=== PATIENT | male | born 1975 | race Caucasian/White ===

== ENCOUNTER 2023-11-15 15:42 | Observation (INO) | payer BC, SELFPAY ==
[2023-11-15] VITALS (9 sets, daily range): BP systolic 122–162; BP diastolic 81–110; BMI 25.7
--- NOTE | 2023-11-15 11:31 | ED.CVA ---
History of Present Illness
<Nubia Mccabe PA-C - Last Filed: 11/15/23 16:26>
General
Chief Complaint: CVA/TIA Symptoms
Source: patient
Time Seen by Provider: 11/15/23 11:07
Onset of Stroke Symptoms
Onset of symptoms known: Yes
Date of onset of symptoms: 11/13/23
History of Present Illness
History of Present Illness:
48yoM with a history of tobacco use (2 ppd) and gout presenting with his for evaluation of possible stroke-like symptoms. Symptoms initially began 2 nights ago. He reports dizziness which he describes as 'wooziness' and feeling off balance. He
states it feels like he is buzzed. These symptoms come and go. He also reports intermittent 'flashes' in his right eye since Monday as well as gait imbalance. He was trying to open the car door this morning but was unable to grab on to the handle.
He states it felt like he forgot how to open the door. This lasted about 1 minute. He had two similar episodes of this yesterday. He was seen by his PCP this morning and was sent to the ED for evaluation. He denies any headache, double vision,
vertigo, weakness, paresthesias. No head trauma.
Phy Exam
<Nubia Mccabe PA-C - Last Filed: 11/15/23 16:26>
General Physical Exam
General Presentation: well appearing and no apparent distress
General age: appears stated age
General Skin: warm and dry
General Habitus: normal
General Mental: alert
Cardiovascular Exam
Cardiovascular Exam: regular rate/rhythm, no edema and no murmur
Pulmonary Exam
Pulmonary Exam: lungs clear, no respiratory distress, no crackles and no wheezing
Neurological Exam
Neurological Exam: alert, CN II-XII intact, no motor deficits, no sensory deficits and other (CN 2-12 intact. PERRL. EOMs intact. Visual basilio normal. 5/5 strength and sensation intact in all extremities. Negative drift x4. Normal finger to nose
and heel to syed bilaterally. +Ataxia with tandem gait. )
NIH Stroke Score
Level of Consciousness: 0 - Alert
LOC questions: 0-Answers both correctly
LOC Commands: 0-Performs both correctly
Best Gaze: 0-Normal
Visual Basilio: 0=Normal, no visual loss
Facial palsy: 0=Normal, symmetrical
Motor - Right Arm: 0=No drift 10 seconds
Motor - Left Arm: 0=No drift 10 seconds
Motor - Right Le-No drift 5 seconds
Motor - Left Le-No drift 5 seconds
Limb Ataxia: 0-Absent
Sensation: 0-Normal
Best Language: 0-No aphasia
Dysarthria: 0-Normal
Extinction and Inattention: 0-No abnormality
Total Score:: 0
[place] Coma Scale
Eye Opening: Spontaneous
Verbal Response: Oriented
Motor Response: Obeys Commands
GCS Total Score: 15
Course
<Nubia Mccabe PA-C - Last Filed: 11/15/23 16:26>
Orders/Labs/Results
Orders:
Orders
11/15/23 10:52
CT Head W/o Iv Contrast Urgent
Comment:
Reason For Exam: lightheaded/unsteady gait for two days
11/15/23 11:31
Electrocardiogram (*1) Urgent
Reason for Study: Vertigo / Dizzy
EKG- Treatment ONCE
11/15/23 11:41
Complete Blood Count/With Diff Urgent
Comprehensive Metabolic Panel Urgent
Troponin I Urgent
11/15/23 12:29
CT Head & Neck Angio W/wo IV Urgent
Comment:
Reason For Exam: Dizziness, CVA symptoms
11/15/23 14:53
Admit/Transfer Patient As Directed
Co-Sign Provider:
Level of Care: Observation services
Assign to:: Telemetry
Physician / Group: josiane
Diagnosis: CVA
Reason for Telemetry: CVA/TIA
Date to Stop Telemetry: 11/18/23
Time to Stop Telemetry: 11:00
PRN Pain Medication Management As Directed
May give lesser potent ordered pain med per pt: Yes
preference::
Protocol:: Medication orders for pain may be administered in a
manner that supports deferring to patient preference
when the pt is:
- Requesting an ordered lesser potent pain medication.
Least to most potent pain medications are defined
as: acetaminophen < NSAID < tramadol < opioids
(morphine, oxycodone, hydromorphone).
- Requesting a lesser dose of the same medication IF
ORDERED.
- Requesting a less intrusive route of administration
if both routes are prescribed by the provider (PO <
IV).
11/15/23 14:54
Code Status As Directed
Resuscitation Status: Full Code
11/15/23 16:11
0.9% Sodium Chloride [Nss (Preservative Free)] See Protocol IV PRN PRN
Acetaminophen [Tylenol/Feverall] 650 mg RECTAL Q4HPRN PRN
Acetaminophen [Tylenol] 650 mg PO Q4HPRN PRN
FOLic ACID [Folvite] 1 mg 0.9% Sodium Chloride 50 ml [Nss] 50 ml IV DAILYPRN
Lorazepam [Ativan] 1 mg IV Q1HPRN PRN
Lorazepam [Ativan] 1 mg PO Q2HPRN PRN
Lorazepam [Ativan] 2 mg IV Q1HPRN PRN
11/15/23 16:11
Case Management Consult ONCE
Case Management Consult: Discharge Planning
Comment: stroke/tia
Case Management Consult Once
Case Management Consult: Other
Comment: Substance abuse counseling
DIETARY CONSULT Routine
Reason for Consult: Nutrition support, possible refeeding guidelines
DIETARY CONSULT Routine
Reason for Consult: stroke/TIA
NEUROLOGY CONSULT Urgent
Consulting Provider: Abdoul Green
Was physician already notified: Yes
Sign Writer Hand Urgent
Alcohol Urgent
B-Hydroxybutyrate Urgent
Comprehensive Metabolic Panel Routine
GGTP Urgent
Glycohemoglobin (HgbA1c) Routine
Magnesium Urgent
Phosphorus Urgent
Urinalysis Routine
Urine Drug Abuse Screen Routine
MR Brain Without Contrast Routine
Comment:
Reason For Exam: stroke/TIA
Recent pill cam endoscopy?: No
Activity As Directed
Activity Level: As Tolerated
MSAS SCORE As Directed
MSAS Score 0-4: Repeat MSAS every 2 hours until 0-4 for three consecutive assessments, then every 4 hours x 48
hours.
MSAS Score 5-7: For MILD withdrawl symptoms. Repeat MSAS and RASS every 2 hours
MSAS Score 8-11: For MODERATE withdrawal symptoms. Repeat MSAS and RASS every 1 hour. Consider ICU or IMU
level of care.
MSAS Score > 11: For SEVERE withdrawal symptoms. Repeat MSAS and RASS every 1 hour. Notify provider, consider
ICU level of care.
MSAS Additional Instructions: If no improvement or no decrease in score from severe to moderate within 12
hours, consult psychiatry
MSAS Notify Provider: Notify provider if patient requires more than 10 mg of Lorazepam in eight hour period.
NIH Stroke Scale As Directed
Directions: Per protocol
Comment: every shift and with any change in condition or mental status
Neurological Checks As Directed
Frequency: q4h
Additional Instructions:: q4h x 24h upon admission to the floor, then qshift & with any change in condition
and mental status
Patient Education As Directed
Type: Stroke education packet
Comment: provide to patient and family
Pneumatic Compression Sleeves As Directed
Type: Thigh high
Swallow Screening CVA/TIA ONLY As Directed
Comment: NPO until swallowing screening completed
If patient FAILS swallow screening:: NPO, Speech Therapy consult, Aspiration Precautions
If patient PASSES swallow screening, diet:: Cholesterol Lowering
Vital Signs As Directed
Frequency: Per unit guidelines
Ot Eval And Treat Routine
Pt Eval And Treat Routine
Activity Level: As Tolerated
Speech Therapy Eval & Treat Routine
DX Deep Vein Thrombosis Video Routine
11/15/23 18:00
Atorvastatin [Lipitor] 40 mg PO QPM
11/15/23 20:00
Thiamine Injection 200 mg IV Q12
11/16/23 06:00
Cardiovascular Evaluation IN AM
Complete Blood Count/No Diff IN AM
11/16/23 08:00
Allopurinol [Zyloprim] 100 mg PO DAILY
Aspirin Chewable [Low Strength Aspirin] 81 mg PO DAILY
FOLic ACID [Folvite] 1 mg PO DAILY
11/18/23 11:00
DC Protocol for Telemetry ONCE
11/18/23 20:00
Thiamine HCl [Vitamin B1] 100 mg PO BID
Abnormal Lab Results
11/15/23
11:41
WBC 13.8 H 10^3/uL
(4.8-10.8)
RBC 3.30 L 10^6/uL
(4.70-6.10)
Hct 37.9 L %
(39.0-52.0)
MCV 114.8 H fL
(80.0-94.0)
MCH 43.0 H pg
(27.0-31.0)
MCHC 37.5 H g/dL
(33.0-37.0)
Plt Count 458 H 10^3/uL
(130-400)
Abs Immat Gran (auto) 0.2 H 10^3/uL
(0-0.05)
Absolute Neuts (auto) 10.4 H 10^3/uL
(1.4-6.5)
Immature Gran % 1.4 H %
(0-0.5)
Lymphocytes % 16.4 L %
(20.5-51.1)
Chloride 93 L mmol/L
(98-107)
Carbon Dioxide 36 H mmol/L
(22-30)
BUN 8 L mg/dl
(9-20)
Creatinine 0.6 L mg/dL
(0.7-1.3)
Glucose 122 H mg/dl
(70-99)
AST 99 H U/L
(17-59)
ALT 51 H U/L
(0-50)
Alkaline Phosphatase 181 H U/L
(38-126)
11/15/23 11:41
11/15/23 11:41
Vital Signs
Initial and Last Documented VS:
Initial Vital Signs
Temp Pulse Resp Pulse Ox
98.2 F 97 16 98
11/15/23 10:49 11/15/23 10:49 11/15/23 10:49 11/15/23 10:49
Last Documented Vital Signs
Temp Pulse Resp BP Pulse Ox
98.2 F 76 23 132/94 99
11/15/23 10:49 11/15/23 15:45 11/15/23 15:45 11/15/23 15:00 11/15/23 12:42
<Gianni Eason, DO - Last Filed: 11/15/23 12:04>
Orders/Labs/Results
Orders:
Orders
11/15/23 10:52
CT Head W/o Iv Contrast Urgent
Comment:
Reason For Exam: lightheaded/unsteady gait for two days
11/15/23 11:31
Electrocardiogram (*1) Urgent
Reason for Study: Vertigo / Dizzy
EKG- Treatment ONCE
11/15/23 11:41
Complete Blood Count/With Diff Urgent
Comprehensive Metabolic Panel Urgent
Troponin I Urgent
11/15/23 12:29
CT Head & Neck Angio W/wo IV Urgent
Comment:
Reason For Exam: Dizziness, CVA symptoms
11/15/23 14:53
Admit/Transfer Patient As Directed
Co-Sign Provider:
Level of Care: Observation services
Assign to:: Telemetry
Physician / Group: josiane
Diagnosis: CVA
Reason for Telemetry: CVA/TIA
Date to Stop Telemetry: 11/18/23
Time to Stop Telemetry: 11:00
PRN Pain Medication Management As Directed
May give lesser potent ordered pain med per pt: Yes
preference::
Protocol:: Medication orders for pain may be administered in a
manner that supports deferring to patient preference
when the pt is:
- Requesting an ordered lesser potent pain medication.
Least to most potent pain medications are defined
as: acetaminophen < NSAID < tramadol < opioids
(morphine, oxycodone, hydromorphone).
- Requesting a lesser dose of the same medication IF
ORDERED.
- Requesting a less intrusive route of administration
if both routes are prescribed by the provider (PO <
IV).
11/15/23 14:54
Code Status As Directed
Resuscitation Status: Full Code
11/15/23 16:11
0.9% Sodium Chloride [Nss (Preservative Free)] See Protocol IV PRN PRN
Acetaminophen [Tylenol/Feverall] 650 mg RECTAL Q4HPRN PRN
Acetaminophen [Tylenol] 650 mg PO Q4HPRN PRN
FOLic ACID [Folvite] 1 mg 0.9% Sodium Chloride 50 ml [Nss] 50 ml IV DAILYPRN
Lorazepam [Ativan] 1 mg IV Q1HPRN PRN
Lorazepam [Ativan] 1 mg PO Q2HPRN PRN
Lorazepam [Ativan] 2 mg IV Q1HPRN PRN
11/15/23 16:11
Case Management Consult ONCE
Case Management Consult: Discharge Planning
Comment: stroke/tia
Case Management Consult Once
Case Management Consult: Other
Comment: Substance abuse counseling
DIETARY CONSULT Routine
Reason for Consult: Nutrition support, possible refeeding guidelines
DIETARY CONSULT Routine
Reason for Consult: stroke/TIA
NEUROLOGY CONSULT Urgent
Consulting Provider: Abdoul Green
Was physician already notified: Yes
Sign Writer Hand Urgent
Alcohol Urgent
B-Hydroxybutyrate Urgent
Comprehensive Metabolic Panel Routine
GGTP Urgent
Glycohemoglobin (HgbA1c) Routine
Magnesium Urgent
Phosphorus Urgent
Urinalysis Routine
Urine Drug Abuse Screen Routine
MR Brain Without Contrast Routine
Comment:
Reason For Exam: stroke/TIA
Recent pill cam endoscopy?: No
Activity As Directed
Activity Level: As Tolerated
MSAS SCORE As Directed
MSAS Score 0-4: Repeat MSAS every 2 hours until 0-4 for three consecutive assessments, then every 4 hours x 48
hours.
MSAS Score 5-7: For MILD withdrawl symptoms. Repeat MSAS and RASS every 2 hours
MSAS Score 8-11: For MODERATE withdrawal symptoms. Repeat MSAS and RASS every 1 hour. Consider ICU or IMU
level of care.
MSAS Score > 11: For SEVERE withdrawal symptoms. Repeat MSAS and RASS every 1 hour. Notify provider, consider
ICU level of care.
MSAS Additional Instructions: If no improvement or no decrease in score from severe to moderate within 12
hours, consult psychiatry
MSAS Notify Provider: Notify provider if patient requires more than 10 mg of Lorazepam in eight hour period.
NIH Stroke Scale As Directed
Directions: Per protocol
Comment: every shift and with any change in condition or mental status
Neurological Checks As Directed
Frequency: q4h
Additional Instructions:: q4h x 24h upon admission to the floor, then qshift & with any change in condition
and mental status
Patient Education As Directed
Type: Stroke education packet
Comment: provide to patient and family
Pneumatic Compression Sleeves As Directed
Type: Thigh high
Swallow Screening CVA/TIA ONLY As Directed
Comment: NPO until swallowing screening completed
If patient FAILS swallow screening:: NPO, Speech Therapy consult, Aspiration Precautions
If patient PASSES swallow screening, diet:: Cholesterol Lowering
Vital Signs As Directed
Frequency: Per unit guidelines
Ot Eval And Treat Routine
Pt Eval And Treat Routine
Activity Level: As Tolerated
Speech Therapy Eval & Treat Routine
DX Deep Vein Thrombosis Video Routine
11/15/23 18:00
Atorvastatin [Lipitor] 40 mg PO QPM
11/15/23 20:00
Thiamine Injection 200 mg IV Q12
11/16/23 06:00
Cardiovascular Evaluation IN AM
Complete Blood Count/No Diff IN AM
11/16/23 08:00
Allopurinol [Zyloprim] 100 mg PO DAILY
Aspirin Chewable [Low Strength Aspirin] 81 mg PO DAILY
FOLic ACID [Folvite] 1 mg PO DAILY
11/18/23 11:00
DC Protocol for Telemetry ONCE
11/18/23 20:00
Thiamine HCl [Vitamin B1] 100 mg PO BID
Abnormal Lab Results
11/15/23
11:41
WBC 13.8 H 10^3/uL
(4.8-10.8)
RBC 3.30 L 10^6/uL
(4.70-6.10)
Hct 37.9 L %
(39.0-52.0)
MCV 114.8 H fL
(80.0-94.0)
MCH 43.0 H pg
(27.0-31.0)
MCHC 37.5 H g/dL
(33.0-37.0)
Plt Count 458 H 10^3/uL
(130-400)
Abs Immat Gran (auto) 0.2 H 10^3/uL
(0-0.05)
Absolute Neuts (auto) 10.4 H 10^3/uL
(1.4-6.5)
Immature Gran % 1.4 H %
(0-0.5)
Lymphocytes % 16.4 L %
(20.5-51.1)
Chloride 93 L mmol/L
(98-107)
Carbon Dioxide 36 H mmol/L
(22-30)
BUN 8 L mg/dl
(9-20)
Creatinine 0.6 L mg/dL
(0.7-1.3)
Glucose 122 H mg/dl
(70-99)
AST 99 H U/L
(17-59)
ALT 51 H U/L
(0-50)
Alkaline Phosphatase 181 H U/L
(38-126)
11/15/23 11:41
11/15/23 11:41
Vital Signs
Initial and Last Documented VS:
Initial Vital Signs
Temp Pulse Resp Pulse Ox
98.2 F 97 16 98
11/15/23 10:49 11/15/23 10:49 11/15/23 10:49 11/15/23 10:49
Last Documented Vital Signs
Temp Pulse Resp BP Pulse Ox
98.2 F 76 23 132/94 99
11/15/23 10:49 11/15/23 15:45 11/15/23 15:45 11/15/23 15:00 11/15/23 12:42
ivette;Nubia Mccabe PA-C - Last Filed: 11/15/23 16:26>
MDM/Problems Addressed
Differential Diagnosis Includes:
48yoM here with stroke-like symptoms that began about 36 hours ago. C/o dizziness and intermittent R visual changes. He had an episode this morning in which he did not remember how to open the car door. Sent here by PCP. He is hypertensive with
otherwise normal vital signs. No focal deficits on exam other than ataxia with tandem gait. NIHSS 0. Differential diagnosis includes but is not limited to: CVA, TIA, arrhythmia, vertigo
Initial ED plan: Check cardiac labs, EKG, and CT head. No indication for stroke alert as symptoms started >24 hours ago.
<Nubia Mccabe PA-C - Last Filed: 11/15/23 16:26>
*EKG
Interpreted by ED Provider?: Yes
EKG Intrepretation Date: 11/15/23
EKG Intrepretation Time: 11:55
Heart Rate: 80
Rate: normal
Rhythm: sinus
[place]: normal axis
Interval: normal interval
QRS Pattern: normal QRS
Ischemia: no ischemia
*Critical Care Note
Total Time (30-74mins, 75-104mins- exclusive of procedures): Not Applicable
<Nubia Mccabe PA-C - Last Filed: 11/15/23 16:26>
Update Note
Update Note:
CT head is negative for acute findings. I discussed case with neurology, Dr. Green. Neurology recommending admission and CTA head/neck. CTA is negative for large vessel occlusion. He was admitted for further evaluation and management.
ED Attending Note
<Nubia Mccabe PA-C - Last Filed: 11/15/23 16:26>
-
Portions of this chart may have been created with voice recognition software.� Occasional wrong word or��sound alike� substitutions may have occurred due to the inherent limitations of voice recognition software.
<Gianni Eason DO - Last Filed: 11/15/23 12:04>
ED Attending Note
Patient seen and examined by attending physician: Yes
I performed the substantive portion of visit, reviewed & personally made and approve the management plan that is documented in note by myself or LESLIE.: Yes
I performed a history and physical exam of patient and discussed management with resident, I reviewed resident's note and agree with documented findings and plan of care.: Yes
ED Attending Note:
I evaluated patient at bedside. The patient has had 36 hours of ataxic type symptoms. Currently they are improved. Earlier today he had trouble opening a car door. He was a heavy smoker but no other risk factors. He is hypertensive currently.
PA discussing with neurology. NIHSS equals 0 currently but he is still does not feel like his normal self.
Discharge Plan
Departure
Patient Disposition: Admit
Date of Disposition: 11/15/23
Time of Disposition: 14:30
Presentation/result/management discussed w/ accepting MD/DO: Hospitalist
Discharge Problem:
Stroke-like symptoms
Interventions
Interventions:
*Risk Screen - Suicide Last Done: 11/15/23 11:20
*General Assessment Last Done: 11/15/23 11:20
*Neglect/Abuse Screening Last Done: 11/15/23 11:20
ED- Fall Risk Assessment Last Done: 11/15/23 11:20
*Nursing Disposition Last Done: 11/15/23 16:20
ED- Pulmonary Assessment Last Done: 11/15/23 11:20
ED- Neurological Assessment Last Done: 11/15/23 11:20
ED- Cardiac Assessment Last Done: 11/15/23 11:20
Discharge Date and Time
Discharge Date/Time: 11/15/23 16:21
[2023-11-15 12:08] LABS: ALT (SGPT) 51 U/L (0-50); AST (SGOT) 99 U/L (17-59); Albumin 4.3 g/dl (3.5-5.0); Alkaline Phosphatase 181 U/L (38-126); Blood Urea Nitrogen 8 mg/dl (9-20); Calcium 9.3 mg/dl (8.4-10.2); Carbon Dioxide 36 mmol/L (22-30); Chloride 93 mmol/L (98-107); Glucose 122 mg/dl (70-99); Potassium 3.6 mmol/L (3.5-5.1); Sodium 139 mmol/L (135-145); Total Bilirubin 0.7 mg/dl (0.2-1.3); Total Protein 7.7 g/dl (6.3-8.2); eGFR > 60.00
[2023-11-15 12:18] LABS: Troponin I < 0.012 ng/ml
[2023-11-15 14:17] LABS: % Basophils 0.8 % (0-2); % Eosinophils 1.9 % (0-6); % Immature Granulocytes 1.4 % (0-0.5); % Lymphocytes 16.4 % (20.5-51.1); % Monocytes 4.6 % (1.7-9.3); % Neutrophils 74.9 % (42.2-75.2); Absolute Basophils 0.1 10^3/uL (0-0.2); Absolute Eosinophils 0.3 10^3/uL (0-0.7); Absolute Immature Granulocytes 0.2 10^3/uL (0-0.05); Absolute Lymphocytes 2.3 10^3/uL (1.2-3.4); Absolute Monocytes 0.6 10^3/uL (0.1-0.6); Absolute Neutrophils 10.4 10^3/uL (1.4-6.5); Hematocrit 37.9 % (39.0-52.0); Hemoglobin 14.2 g/dL (13.0-18.0); Mean Corp Hgb Conc. 37.5 g/dL (33.0-37.0); Mean Corpuscular Volume 114.8 fL (80.0-94.0); Mean Platelet Volume 9.5 fL (7.4-10.4); Nucleated Red Blood Cells % 0.1 % (-); Platelet Count 458 10^3/uL (130-400); Red Cell Dist. Width 13.8 % (11.5-14.5); White Blood Cell Count 13.8 10^3/uL (4.8-10.8)
--- NOTE | 2023-11-15 14:35 | HPS.HSE ---
Addendum entered and electronically signed by Tyron Dickson DO 11/16/23 17:46:
Eye exam: b/l red reflex present, no obvious hemorrhage, sharp optic discs. EOMI, PERRL
Original Note:
Family Physician
-
Family Physician: Yfn Valdivia
Chief Complaint
-
Dizziness
Off balance double vision
History of Present Illness
48yoM with a history of tobacco use (2ppd) and gout presenting with his for evaluation of possible stroke-like symptoms. Symptoms initially began 2 nights ago. He reports intermittent dizziness, off-balance.. He also reports intermittent
'flashes' in his right eye, double vision. He denies any headache, weakness, paresthesias. No head trauma. Denied fever, chills, chest pain, short of breath. Patient denies abdominal pain, nausea, vomiting, diarrhea. Patient denies dysuria
hematuria
CT head and CTA negative for acute findings. Admitted for further management
Medical History
Past Medical History
Past Medical History: Reports Other
Additional Past Medical History:
Gout
Past Surgical History: Reports None
Social History
Tobacco: Smoker (2)
Alcohol: Daily (10-12 beers/vodka)
Drug: None
Personal:
Living: With Family
Employment: Employed ([employer])
Family History
Family History: Not pertinent
Allergies / Home Medications
Allergies reflects when Allergies were last updated in [facility].
Home Medications with original date entered in [facility]
Allergy/Medication List:
Allergies
Allergy/AdvReac Type Severity Reaction Status Date / Time
No Known Allergies Allergy Verified 11/15/23 10:51
Review of Systems
-
Constitutional: Reports No Symptoms
EENT: Reports No Symptoms
Respiratory: Reports No Symptoms
Cardiac: Reports No Symptoms
Abdomen/GI: Reports No Symptoms
: Reports No Symptoms
Musculoskeletal: Reports No Symptoms
Skin: Reports No Symptoms
Neurological: Reports Dizzy and Other (Double vision, gait imbalance)
Endocrine: Reports No Symptoms
Hematologic/Lymphatic: Reports No Symptoms
Psych: Reports No Symptoms
Physical Exam
Vital Signs
Vital Signs
Temp Pulse Resp BP Pulse Ox
98.2 F 89 20 123/84 99
11/15/23 10:49 11/15/23 12:42 11/15/23 12:42 11/15/23 12:00 11/15/23 12:42
Physical Exam
General: Well Developed, Well Nourished and No Apparent Distress
HEENT: NormoCephalic, Moist mucous membranes and Atraumatic
Respiratory: Clear
Cardiac: S1/S2 and Regular Rhythm; No Murmur or Rub
GI: Soft, Non Tender, Non Distended and Normal Bowel Sounds; No Organomegaly
Rectal: Deferred by Provider
Musculoskeletal: No Clubbing, No Cyanosis and No Edema
Skin: No Rash
Neuro: AO x 3 and Nonfocal/grossly intact
Psych: Calm
Laboratory Results
-
11/15/23 11:41
11/15/23 11:41
Laboratory Results
Total Bilirubin 0.7 mg/dl (0.2-1.3) 11/15/23 11:41
AST 99 U/L (17-59) H 11/15/23 11:41
ALT 51 U/L (0-50) H 11/15/23 11:41
Alkaline Phosphatase 181 U/L (38-126) H 11/15/23 11:41
Troponin I < 0.012 ng/ml 11/15/23 11:41
Data Reviewed
-
CT Scan: Report Reviewed by me
Lab Data: Labs Reviewed by me
Impression/Plan
-
# Dizziness/right eye visual disturbance/ambulatory dysfunction rule out acute CVA
-NIHSS 0
-CT and CTA negative for acute findings
-EKG with normal sinus rhythm
-Will obtain MRI
-Obtain A1c, lipid profile
-Continue statin and aspirin
-obtain ECHO
-PT/OT consulted
-Neurology consulted
# Leukocytosis likely stress reaction
-WBC 13.8, patient is afebrile
-ctm
-obtain UA
# Elevated liver enzymes likely from daily alcohol abuse
-AST 99, ALT 51
-trend LFT
-denied abdominal pain, n,v
#alcohol abuse
-daily intake of 10-12 vodka/beer
-alcohol protocol
-monitor MSAS score
#Nicotine dependence
-2 packs daily
-denied nicotine patch
-encourage cessation
#hxt of GOUT
-allopurinol continued
#DVT Prophylaxis
-scd
#CODE status
-full code
[2023-11-15] MEDS: LIPITOR 40 MG PO (16:59)
--- NOTE | 2023-11-15 16:59 | PTCARENOTE ---
pt presents from ED via stretcher. pt is AAO*3, vss, denies pain, c/o dizziness at times with standing. pt's at the bedside. MSAS and NIH 0 at this time. pt oriented to the room. call medel within the reach. plan of care ongoing.
[2023-11-15 17:17] LABS: ALT (SGPT) 43 U/L (0-50); AST (SGOT) 78 U/L (17-59); Albumin 3.9 g/dl (3.5-5.0); Alkaline Phosphatase 166 U/L (38-126); Blood Urea Nitrogen 8 mg/dl (9-20); Calcium 8.9 mg/dl (8.4-10.2); Carbon Dioxide 35 mmol/L (22-30); Chloride 94 mmol/L (98-107); Estimated Creatinine Clearance > 125 ml/min; Glucose 106 mg/dl (70-99); Magnesium 1.4 mg/dl (1.6-2.3); Potassium 3.5 mmol/L (3.5-5.1); Sodium 138 mmol/L (135-145); Total Bilirubin 0.7 mg/dl (0.2-1.3); eGFR > 60.00
[2023-11-15 17:52] LABS: GGTP 418 U/L (15-73); Phosphorus 4.1 mg/dl (2.5-4.5)
[2023-11-15 17:53] LABS: Alcohol None Detected
[2023-11-15 17:59] LABS: B-Hydroxybutyrate 0.05 mmol/L (0.02-0.27)
[2023-11-15] MEDS: THIAMINE INJECTION 200 MG IV (20:00)
[2023-11-15 23:55] LABS: Urine Albumin Trace (Neg - Trace); Urine Bilirubin 1+ (Negative); Urine Character Clear (Clear); Urine Color Yellow; Urine Glucose Negative (Negative); Urine Ketone Negative (Negative); Urine Leukocyte Trace (Negative); Urine Nitrite Negative (Negative); Urine Occult Blood Negative (Negative); Urine Urobilinogen 3+ (Neg - 1+)
[2023-11-16 00:03] LABS: Urine Squamous Cell 0-2 /LPF (Few)
[2023-11-16 00:04] LABS: Urine Bacteria Few (Negative); Urine Red Blood Cell 0-2 /HPF (0-2)
[2023-11-16 00:35] LABS: Amphetamines Negative (Negative); Barbiturates Negative (Negative); Benzodiazepines Negative (Negative); Buprenorphine Negative (Negative); Cocaine Negative (Negative); Marijuana Positive (Negative); Methadone Negative (Negative); Methamphetamines Negative (Negative); Opiates Negative (Negative); Phencyclidine Negative (Negative); Tricyclic Antidepressants Negative (Negative)
[2023-11-16 03:47] VITALS: BP 150/88
--- NOTE | 2023-11-16 05:10 | PTCARENOTE ---
MRI called for pt. Assisted pt to . Pt reports 'pixelated flashes' in R eye. No visual field cut. Face symmetrical, bilateral hand grasp equal, LE strength equal, speech clear. Pt transported to MRI via at this time.
--- NOTE | 2023-11-16 05:40 | PTCARENOTE ---
Pt returned from MRI via
[2023-11-16 07:16] VITALS: BP 169/110
[2023-11-16] MEDS: LOW STRENGTH ASPIRIN 81 MG PO (07:39)
[2023-11-16] MEDS: ZYLOPRIM 100 MG PO (07:39)
[2023-11-16] MEDS: THIAMINE INJECTION 200 MG IV (07:40)
[2023-11-16] MEDS: FOLVITE 1 MG PO (07:40)
[2023-11-16 10:33] VITALS: BP 137/96; BP 143/91; PULSE 63; O2SAT 99
--- NOTE | 2023-11-16 10:44 | PTOTSP ---
Patient demonstrates safe and independent mobility, no skilled physical therapy needs at this time. Patient did have recurrence of R visual field 'pixilated box' at end of session, notified nurse.
[2023-11-16 10:48] LABS: Glycohemoglobin (HgbA1c) 6.1 % (4.0-5.6)
--- NOTE | 2023-11-16 11:03 | PTCARENOTE ---
Assumed care of pt from previous nurse. Pt denies pain. pt [facility] is a 0. Pt is on tele running NSR. Pt call medel is within reach, pt rings dru.will cont to monitor.
[2023-11-16 11:12] VITALS: BP 131/80
--- NOTE | 2023-11-16 11:40 | CM ---
Patient seen bedside with , initial assessment completed. Patient resides in multiple story home with and daughter, 9 steps to enter. Patient is independent with ADLs/IADLs, no PT need. Patient PCP Yfn Valdivia, pharmacy [facility],
confirms prescription coverage. Patient declines any food, housing/utility, transportation insecurities at home. Patient declines need for [facility]. CM reviewed OBS, signed, placed in chart. CM will continue to follow for all discharge planning needs.
Plan; home no needs.
[2023-11-16 11:48] LABS: Hemoglobin 13.4 g/dL (13.0-18.0); Mean Corp Hgb Conc. 37.2 g/dL (33.0-37.0); Mean Corpuscular Hgb 43.4 pg (27.0-31.0); Mean Corpuscular Volume 116.5 fL (80.0-94.0); Platelet Count 642 10^3/uL (130-400); Red Blood Cell Count 3.09 10^6/uL (4.70-6.10); Red Cell Dist. Width 13.3 % (11.5-14.5); White Blood Cell Count 11.6 10^3/uL (4.8-10.8)
[2023-11-16 11:54] LABS: HDL Cholesterol 28 mg/dl; LDL Cholesterol, Calculated 142 mg/dl; Total Cholesterol 205 mg/dl (50-199); Triglyceride 176 mg/dl (10-149); Very Low Density Lipoprotein 35 mg/dl (0-30)
--- NOTE | 2023-11-16 12:54 | W.PN.HOSP.TC ---
Today's Communication/Plan
-
Discharged with follow-up for ophthalmology
Assessment / Plan
Assessment / Plan
#Dizziness/right eye visual disturbance/ambulatory dysfunction
#Rule out acute CVA
-Symptoms resolved by admission, NIHSS 0; intermittently recurrent symptoms though neurologically intact this morning
-CT, CTA, MRI of brain were all unremarkable; MRI did show some likely artifactual findings in the cerebral hemispheres
-The findings on the MRI do not correlate anatomically to those symptoms he presented with
-Suspect that this could be an underlying ophthalmological issue
-Neurology following, suspicion for CVA very low
#Elevated blood pressure without diagnosis of hypertension
-BP has been elevated here, patient states that when he goes to the doctor his blood pressure is always normal
-I suspect he does have underlying hypertension, especially with his smoking history and substance use
-Likely being discharged from hospital today, will not start any medication as of now
-He should follow-up with PCP and begin ambulatory blood pressure monitoring
# Leukocytosis likely stress reaction
-Downtrending, no fevers or chills
# Elevated liver enzymes likely from daily alcohol abuse
-AST 99, ALT 51
-Encouraged alcohol rehab for cessation
#alcohol abuse
-daily intake of 10-12 vodka/beer
-alcohol protocol
-monitor MSAS score
#Nicotine dependence
-2 packs daily
-denied nicotine patch
-encourage cessation
#hx of GOUT
-allopurinol continued
DVT Prophylaxis: scd
CODE status: full code
Anticipated Discharge: Today
Subjective/Interval History
-
Date of Service: November 16, 2023
Seen and examined at bedside. Overnight he had 2 intermittent occur occurrences of similar symptoms to those prior to admission. Said that they lasted for short time and went away spontaneously. He denies any aphasia, motor weakness, paresthesias,
facial droop. States he feels otherwise well and would like to go home today if possible
Objective Data
-
Labs:
Laboratory Results
11/16/23
10:47
WBC 11.6 H
Hgb 13.4
Hct 36.0 L
Plt Count 642 H D
Vital Signs:
Vital Signs
Temp Pulse Resp BP Pulse Ox
97.1 F 62 12 131/80 98
11/16/23 11:12 11/16/23 11:12 11/16/23 07:16 11/16/23 11:12 11/16/23 11:12
I&O
11/15/23 11/16/23 11/17/23
06:59 06:59 06:59
Intake Total 480 / 480
Balance 480 / 480
Review of Systems
-
History Source: Patient
All other systems: Reviewed and negative
Physical Exam
-
General: Well Developed, No Apparent Distress and Conversant
HEENT: Normocephalic, Atraumatic, Moist Mucous Membranes, PERRLA and Other (EOMI)
Respiratory: Clear to Auscultation and Non Labored Respirations; Negative Wheezes, Rales or Rhonchi
Cardiac: Regular Rhythm and S1/S2; Negative Murmur, Rub or Gallop
GI: Soft, Nontender, Nondistended and Normal Bowel Sounds
Musculoskeletal: No Clubbing, No Cyanosis and No Edema
Skin: Warm and Dry; Negative Rash
Neuro: AO x 3, Nonfocal/Grossly Intact and Central Nerve's Intact; Negative Tremors
Psych: Calm
Data Reviewed
-
MRI: Report Reviewed by me, Discussed with Physician and Discussed with Patient
Labs: Labs Reviewed by me and Discussed with Patient
--- NOTE | 2023-11-16 13:16 | W.DCSUMMARY ---
Addendum entered and electronically signed by Tyron Dickson DO 11/16/23 17:47:
H&P fundoscopic/eye exam: b/l red reflex present, no obvious hemorrhage, sharp optic discs. EOMI, PERRL. External eye appears normal
Original Note:
Discharge Summary
Discharge Data
Date of Admission: 11/15/23
Date of Discharge: 11/16/23
-
Pending Results: No
Hospital Course
Presenting to the hospital with visual disturbance and dizziness that resolved by time of arrival. CT, CTA head and neck, MRI brain, echocardiogram did not show any acute findings. MRI did show abnormal artifactual findings that were not
anatomically consistent with the deficits that brought the patient here. TTE did show signs of aortic root dilation though no other acute findings. Was found to have hyperlipidemia with LDL 140. Started on moderate intensity statin due to
elevated LDL and smoking history. Neurology evaluated patient, suspicion for CVA very low. He will need to follow-up with laminator hand at discharge, provided referral
-Start moderate intensity statin nightly
-Continue with folic acid and thiamine daily supplementation
-Follow-up with outpatient ophthalmology
-Follow-up with PCP concerning blood pressure management
Discharge Plan
-
Patient Disposition: Home (Routine Discharge)
Discharge Diagnosis/Procedures: CVA rule-out
Visual disturbance
Condition: Good
Diet: No restrictions
Additional Diets: Alcohol cessation
Activity: No restrictions
Driving Restrictions: As prior to admission
Bathing Restrictions: None
Referrals:
Suhail Godoy MD [Active] - in three to four days
Yfn Valdivia PA-C [Family Provider] -
Additional Discharge Medication Instructions: Start atorvastatin 20 mg nightly
Start folic acid 1 mg daily
Start thiamine 100 mg daily
Prescriptions:
New
atorvastatin 40 mg Tablet
40 mg PO QPM Qty: 0 0RF
thiamine HCl (vitamin B1) 100 mg Tablet
100 mg PO BID Qty: 0 0RF
folic acid 1 mg Tablet
1 mg PO DAILY Qty: 0 0RF
atorvastatin 20 mg tablet
20 mg PO HS Qty: 30 0RF
folic acid 1 mg tablet
1 mg PO DAILY Qty: 30 0RF
thiamine HCl (vitamin B1) 100 mg tablet
100 mg PO DAILY Qty: 30 0RF
Continued
allopurinol 100 mg Tablet
100 mg PO DAILY
colchicine 0.6 mg Tablet
0.6 mg PO BID PRN (Reason: gout flare)
Discharge Orders:
Discharge Patient (As Directed); Ordered 11/16/23
Ordered By: Tyron Dickson
Discharge Date and Time
Print Language: ARMENIAN
--- NOTE | 2023-11-16 14:50 | PTCARENOTE ---
Pt for dc, reviewed paperwork, iv and tele removed. All belongings from room taken with pt. Left with via her car.
--- NOTE | 2023-11-16 15:27 | PTOTSP ---
SPEECH THERAPY SWALLOW AND SPEECH/LANGUAGE/COGNITIVE COMMUNICATION EVALUATION:
Patient exhibits oropharyngeal swallow within functional limits at this time. Recommend continue Regular texture solids, thin liquids. Medications whole with liquid, one at a time. Swallow therapy is not indicated at this time.
Patient exhibits speech, language, and cognitive communication skills WFL at this time. No speech therapy services are indicated. Patient reported feeling at his baseline level of functioning. ST to sign off.
RECOMMEND:
1) ST is not indicated at this time
== END 2023-11-16 15:20 | disposition home or self-care (01) ==
LOC: 4 EAST ACU 15:42
PROVIDERS: Physician Assistant; Registered Nurse; ADMITTING PHYSICIAN Internal Medicine; EMERGENCY PHYSICIAN Emergency Medicine; FAMILY PHYSICIAN Physician Assistant Medical
DX: H53.9 Unspecified visual disturbance (principal); R42 Dizziness and giddiness; R26.2 Difficulty in walking, not elsewhere classified; F10.10 Alcohol abuse, uncomplicated; M10.9 Gout, unspecified; F17.200 Nicotine dependence, unspecified, uncomplicated; H53.2 Diplopia; D72.829 Elevated white blood cell count, unspecified; R74.8 Abnormal levels of other serum enzymes; R03.0 Elevated blood-pressure reading, without diagnosis of hypertension; E78.5 Hyperlipidemia, unspecified
CPT/HCPCS: 70450; 70496; 70498; 70551; 80053; 80061; 80306; 81003; 81015; 82010; 82077; 82977; 83036; 83735; 84100; 84484; 85025; 85027; 92523; 92610; 93005; 93306; 97161; 99285; G0378; Q9967